=== PATIENT | female | born 1980 | race Caucasian/White ===

== ENCOUNTER 2019-06-25 12:15 | Emergency (ER) | payer OTHER, MEDICAID ==
[~2019-06-25] VITALS: Ht 170.2 cm; Wt 136.1 kg
[2019-06-25 12:18] VITALS: Ht 170.2 cm; Wt 136.1 kg
[2019-06-25 12:54] LABS: BASOPHIL % 0.9 % (0-2); PLATELET COUNT 374 x10^3mcL (130-400)
[2019-06-25 12:55] LABS: RED CELL DISTRIBUTION WIDTH 16.3 % (11.5-14.5)
[2019-06-25 13:08] VITALS: BP 171/99
[2019-06-25 13:08] LABS: CALCIUM 8.8 mg/dL (8.5-10.1); CARBON DIOXIDE 24.2 mmol/L (21-32); CHLORIDE SERUM 104 mmol/L (98-107); CREATININE SERUM 0.6 mg/dL (0.6-1.0); GFR1 > 60 mL/min; GLUCOSE SERUM 105 mg/dL (74-106); POTASSIUM SERUM 4.8 mmol/L (3.5-5.1); SODIUM SERUM 139 mmol/L (136-145)
[2019-06-25 13:20] LABS: ALBUMIN 3.6 g/dL (3.4-5.0); ALKALINE PHOSPHATASE 78 U/L (46-116); ALT/SGPT 39 U/L (14-59); AST/SGOT 37 U/L (15-37); BILIRUBIN TOTAL 0.4 mg/dL (0.20-1.00); MAGNESIUM 1.9 mg/dL (1.8-2.4)
[2019-06-25 13:25] LABS: TOTAL PROTEIN, SERUM 8.9 g/dL (6.4-8.2)
[2019-06-25 16:43] VITALS: BP 110/68
[2019-06-25 17:15] LABS: UA SPECIFIC GRAVITY 1.015 (1.005-1.035); microscopic required? YES; urine erythrocyte TRACE (NEGATIVE)
[2019-06-25 18:00] VITALS: BP 105/61
== END 2019-06-25 18:00 | disposition short-term general hospital (02) ==
LOC: ED 12:15
PROVIDERS: Emergency Medicine
DX: G40.501 Epileptic seizures related to external causes, not intractable, with status epilepticus (principal); Z88.8 Allergy status to other drugs, medicaments and biological substances
CPT/HCPCS: 31500; 36600; 84439; A4628; J1953; J2060; J2250; J2405; J2704; J3010; J3490; J7030; Q0092

== ENCOUNTER 2019-07-04 07:12 | Emergency (ER) | payer OTHER, MEDICAID ==
[~2019-07-04] VITALS: Ht 167.6 cm; Wt 107.0 kg
[2019-07-04 07:47] VITALS: Ht 167.6 cm; Wt 107.0 kg
[2019-07-04 09:20] LABS: ALBUMIN 3.9 g/dL (3.4-5.0); ALKALINE PHOSPHATASE 74 U/L (46-116); ALT/SGPT 28 U/L (14-59); AST/SGOT 11 U/L (15-37); BILIRUBIN TOTAL 0.2 mg/dL (0.20-1.00); CALCIUM 9.1 mg/dL (8.5-10.1); CARBON DIOXIDE 28.4 mmol/L (21-32); CHLORIDE SERUM 102 mmol/L (98-107); CREATININE SERUM 0.7 mg/dL (0.6-1.0); GFR1 > 60 mL/min; GLUCOSE SERUM 98 mg/dL (74-106); MAGNESIUM 1.9 mg/dL (1.8-2.4); POTASSIUM SERUM 4.1 mmol/L (3.5-5.1); SODIUM SERUM 140 mmol/L (136-145)
[2019-07-04 09:21] LABS: TOTAL PROTEIN, SERUM 9.1 g/dL (6.4-8.2)
[2019-07-04 09:55] LABS: BASOPHIL % 0.8 % (0-2)
[2019-07-04 10:00] LABS: PLATELET COUNT 465 x10^3mcL (130-400); RED CELL DISTRIBUTION WIDTH 17.1 % (11.5-14.5)
[2019-07-04 10:21] LABS: UA SPECIFIC GRAVITY 1.025 (1.005-1.035); microscopic required? YES; urine erythrocyte 1+ (NEGATIVE)
[2019-07-04 13:20] VITALS: BP 113/74
== END 2019-07-04 13:20 | disposition home or self-care (01) ==
LOC: ED 07:12
PROVIDERS: Emergency Medicine
DX: J38.7 Other diseases of larynx (principal); J45.909 Unspecified asthma, uncomplicated; Z88.8 Allergy status to other drugs, medicaments and biological substances
CPT/HCPCS: J1953; Q0092

== ENCOUNTER 2019-07-25 11:28 | Emergency (ER) | payer OTHER ==
[~2019-07-25] VITALS: Ht 167.6 cm; Wt 107.5 kg
[2019-07-25 12:04] VITALS: BP 131/65; Ht 167.6 cm; Wt 107.5 kg
== END 2019-07-25 13:42 | disposition home or self-care (01) ==
LOC: ED 11:28
DX: G62.9 Polyneuropathy, unspecified (principal); G56.02 Carpal tunnel syndrome, left upper limb; J45.909 Unspecified asthma, uncomplicated; Z88.8 Allergy status to other drugs, medicaments and biological substances

== ENCOUNTER 2019-08-23 14:03 | Emergency (ER) | payer OTHER ==
[~2019-08-23] VITALS: Ht 167.6 cm; Wt 108.0 kg
[2019-08-23 14:14] VITALS: BP 147/80; Ht 167.6 cm; Wt 108.0 kg
== END 2019-08-23 15:59 | disposition home or self-care (01) ==
LOC: ED 14:03
DX: M25.512 Pain in left shoulder (principal); G89.29 Other chronic pain; J45.909 Unspecified asthma, uncomplicated; Z88.8 Allergy status to other drugs, medicaments and biological substances